=== PATIENT | female | born 1945 | race Caucasian/White ===

== ENCOUNTER → 2016-09-13 | Day surgery (SDC) | payer MEDICARE, OTHER ==
[~2016-09-13] MED LIST: ASPIRIN81 M2 PO; BIOFLEX TABLET1 EACH PO; CALCIUM + D 6001 TA1 PO; FISH OIL 1,2001 EAC1 PO; LOPRESSOR PO; NORVASC PO
--- NOTE | ~2016-09-13 | OR ---
Unit #: [id number] #: [id number] Patient: DAHLIA ERICKSON [id number] [address] [place], [place] [address] [id number] MR#: [id number] NAME: DAHLIA ERICKSON ROOM: Date of Procedure: 09/13/2016 Admission Date: 09/13/2016 Surgeon: Reid Jackson M.D. : 1945 Attending Physician: Reid Jackson M.D. Primary Care Physician: Josefa Sims A.P.R.N. OPERATIVE REPORT PROCEDURE PERFORMED Colonoscopy to cecum. INDICATIONS FOR PROCEDURE Occult positive stool. MEDICATIONS Monitored anesthesia. POSTOPERATIVE FINDINGS Normal exam, mild diverticulosis, good prep. PLAN Repeat colonoscopy in 10 years. DESCRIPTION OF PROCEDURE The patient was explained of the procedure, risks, and benefits along with risks and benefits of anesthesia. She was brought to the endoscopy room. Propofol anesthesia was given. Rectal exam was done, which was normal. Colonoscope was lubricated, passed up the rectum, advanced under direct vision all the way to cecum. Cecum was identified by ileocecal valve and appendiceal orifice. I then started to pull the scope out carefully looking. No polyps, masses, or colitis was seen. Prep was good. Few diverticula were seen. I retroflexed in the rectum. Internal hemorrhoids noted. Gently, the scope was pulled out. She tolerated it well. Dictated by... Crystal Winkler/william TD: 09/14/2016 07:34 JOB #: [id number] CC: Tommy Baeza M.D. Unit #: [id number] #: [id number] Patient: DAHLIA ERICKSON OPERATIVE REPORT X Reid Jackson MD X PROCEDURE OPERATIVE NOTE
== END | disposition home or self-care (01) ==
LOC: COPS 08:03
DX: K57.30 Diverticulosis of large intestine without perforation or abscess without bleeding (principal); K64.8 Other hemorrhoids; I10 Essential (primary) hypertension; Z98.51 Tubal ligation status; Z98.41 Cataract extraction status, right eye; Z98.42 Cataract extraction status, left eye; Z90.49 Acquired absence of other specified parts of digestive tract; Z79.82 Long term (current) use of aspirin; Z79.891 Long term (current) use of opiate analgesic; Z79.899 Other long term (current) drug therapy